=== PATIENT | female | born 1955 | race Caucasian/White ===

== ENCOUNTER → 2016-08-28 | Outpatient (CLI) | payer OTHER ==
[~2016-08-28] MED LIST: ASPIRIN 81M81 MG/TA2 PO; CEFTIN500 MG PO; DOXYCYCLINE 10100 MG PO; HCTZ 25MG TAB25 MG PO; MICARDIS20 MG PO; MICARDIS40 MG PO; PRIL40 PO; ULTRAM 50MG TAB50 MG PO; ZOCOR 40MG40 MG PO
== END ==
LOC: MC.RAD 14:27
DX: Z12.31 Encounter for screening mammogram for malignant neoplasm of breast (principal)

== ENCOUNTER → 2017-09-16 | Outpatient (CLI) | payer OTHER | LOC: MC.RAD 10:30 | DX: Z12.31 Encounter for screening mammogram for malignant neoplasm of breast (principal) ==

== ENCOUNTER 2018-09-09 20:33 | Emergency (ER) | payer OTHER ==
[~2018-09-09] VITALS: Ht 160 cm; Wt 138.6 kg
[2018-09-09 20:38] VITALS: BP 130/70; PULSE 108; TEMP 98.8
[2018-09-09] MEDS ORDERED: ZOCOR 20MG20 MG PO (20:41)
[2018-09-09] MEDS ORDERED: VISINE 15 ML15 ML OP (20:50)
[2018-09-09] MEDS ORDERED: AMOXICILLIN 8751 TAB PO (21:07)
== END 2018-09-09 21:25 | disposition home or self-care (01) ==
LOC: COL.ER 20:33
DX: J01.90 Acute sinusitis, unspecified (principal); I10 Essential (primary) hypertension; E78.5 Hyperlipidemia, unspecified

== ENCOUNTER 2018-10-22 18:37 | Emergency (ER) | payer OTHER ==
[~2018-10-22] VITALS: Ht 160 cm; Wt 139.1 kg
[~2018-10-22 18:37] MED LIST changes: +AMOXICILLIN 8751 TAB PO; +VISINE 15 ML15 ML OP; +ZOCOR 20MG20 MG PO
[2018-10-22 18:42] VITALS: BP 137/92; TEMP 99.1
[2018-10-22 19:34] LABS: BASO % 0.2 % (0.0-2.0); EOS # 0.1 (0.0-0.7); EOS % 0.9 % (0-4.0); GRAN # 12.1 (1.4-6.5); GRAN % 79.8 % (42.2-75.2); HEMATOCRIT 42.7 % (37.0-47.0); HEMOGLOBIN 13.9 g/dl (12.5-16.0); LYMPH # 1.9 (1.2-3.4); LYMPH % 12.7 % (20.0-51.0); MEAN CELL VOLUME 92 fl (80.0-100.0); MEAN CORPUSCULAR HEMOGLOBIN 30 pg (27.0-31.0); MEAN CORPUSCULAR HGB CONC 33 g/dl (33.0-37.0); MEAN PLATELET VOLUME 8.9 fl (7.4-10.4); MONO # 0.9 (0.1-0.6); MONO % 5.9 % (1.7-9.3); PLATELET COUNT 303 K/mm3 (130-400); RED BLOOD COUNT 4.63 M/mm3 (4.10-5.30); REDCELL DISTRIBUTION WIDTH-CV 12.7 % (11.5-14.5)
[2018-10-22 19:54] LABS: ALBUMIN 3.9 gm/dL (3.5-5.0); BILIRUBIN,TOTAL 0.6 mg/dL (0.0-1.0); C-REACTIVE PROTEIN 7.5 mg/dL (0.0-0.9); CALCIUM 9.3 mg/dL (8.4-10.2); CREATININE, serum 0.79 (0.52-1.25); TOTAL PROTEIN 7.8 gm/dL (6.4-8.2)
[2018-10-22 20:11] LABS: COLLECTION METHOD CLEAN CATCH
[2018-10-22 20:17] LABS: PH 6 (5-8); URINE APPEARANCE Hazy; URINE BACTERIA None Seen /hpf; URINE BILIRUBIN Negative (NEGATIVE); URINE BLOOD Negative (NEGATIVE); URINE COLOR Yellow; URINE GLUCOSE Negative (NEGATIVE); URINE KETONE Negative (NEGATIVE); URINE LEUKOCYTE ESTERASE Negative (NEGATIVE); URINE NITRATE Negative (NEGATIVE); URINE PROTEIN(semi-quant) Negative (NEGATIVE); URINE UROBILINOGEN Negative (NEGATIVE)
[2018-10-22] MEDS ORDERED: NORCO 325 MG-51 TAB PO (20:56)
[2018-10-22] MEDS ORDERED: MEDROL 4MG DOSPA4 MG PO (20:56)
[2018-10-22 21:20] VITALS: PULSE 94
== END 2018-10-22 21:21 | disposition home or self-care (01) ==
LOC: COL.ER 18:37
PROVIDERS: Emergency Medicine
DX: M79.18 Myalgia, other site (principal); Z79.82 Long term (current) use of aspirin
CPT/HCPCS: J1885; J7512

== ENCOUNTER 2018-11-03 05:32 | Inpatient (IN) | payer OTHER ==
[~2018-11-03] VITALS: Ht 160 cm; Wt 138.7 kg
[~2018-11-03 05:32] MED LIST changes: +MEDROL 4MG DOSPA4 MG PO; +NORCO 325 MG-51 TAB PO
[2018-11-03 06:21] LABS: BASO % 0.2 % (0.0-2.0); EOS # 0.3 (0.0-0.7); EOS % 2.1 % (0-4.0); GRAN # 9.5 (1.4-6.5); GRAN % 72.2 % (42.2-75.2); HEMATOCRIT 42.3 % (37.0-47.0); LYMPH # 2.4 (1.2-3.4); LYMPH % 18.2 % (20.0-51.0); MEAN CELL VOLUME 92 fl (80.0-100.0); MEAN CORPUSCULAR HEMOGLOBIN 30 pg (27.0-31.0); MEAN CORPUSCULAR HGB CONC 33 g/dl (33.0-37.0); MONO # 0.9 (0.1-0.6); MONO % 6.8 % (1.7-9.3); PLATELET COUNT 290 K/mm3 (130-400); RED BLOOD COUNT 4.61 M/mm3 (4.10-5.30); REDCELL DISTRIBUTION WIDTH-CV 12.6 % (11.5-14.5)
[2018-11-03 06:28] LABS: COLLECTION METHOD CLEAN CATCH
[2018-11-03 06:37] LABS: MUCOUS Present /lpf; PH 6 (5-8); URINE APPEARANCE Hazy; URINE BACTERIA None Seen /hpf; URINE BILIRUBIN Negative (NEGATIVE); URINE BLOOD Negative (NEGATIVE); URINE COLOR Yellow; URINE GLUCOSE Negative (NEGATIVE); URINE KETONE Negative (NEGATIVE); URINE LEUKOCYTE ESTERASE Trace (NEGATIVE); URINE NITRATE Negative (NEGATIVE); URINE PROTEIN(semi-quant) Negative (NEGATIVE); URINE RBC 0-2 /hpf; URINE UROBILINOGEN Negative (NEGATIVE)
[2018-11-03 07:04] LABS: ALBUMIN 3.6 gm/dL (3.5-5.0); BILIRUBIN,TOTAL 0.6 mg/dL (0.0-1.0); C-REACTIVE PROTEIN 5.2 mg/dL (0.0-0.9); CALCIUM 9.2 mg/dL (8.4-10.2); CREATININE, serum 0.65 (0.52-1.25); POTASSIUM 3.8 mmol/L (3.4-5.0); TOTAL PROTEIN 6.9 gm/dL (6.4-8.2)
[2018-11-03] MEDS ORDERED: OMNICEF 300MG300 MG PO (07:36)
--- NOTE | 2018-11-03 11:00 | NUR ---
Pt arrived to floor at this time via w/c with ER staff, able to get self into bed with no issues, c/o pain to RUQ at 4/10 at this time, orienting to room, will continue to monitor.
[2018-11-03 11:18] VITALS: BP 121/73; PULSE 73; TEMP 98.2
[2018-11-03 11:22] VITALS: BP 121/73; PULSE 80; TEMP 98.2
[2018-11-03 11:46] VITALS: BP 121/73; PULSE 73; TEMP 98.2
[2018-11-03 14:34] LABS: CHOLESTEROL RISK RATIO 4.7
[2018-11-03 16:27] VITALS: BP 112/67; PULSE 82; TEMP 98.5
--- NOTE | 2018-11-03 17:56 | NUR ---
Pt doing well, pain is down to 2/10 in ABD. Tolerating PO CL diet well. Denies needs, IVF to R A/C. Will give bedside shift report to nightshift nurse who will resume care.
--- NOTE | 2018-11-03 19:45 | NUR ---
Shift assessment complete. PT resting in bed, awake, a&o, cooperative c cares. Pt denies pain or other c/o at this time. IV patent. Pt denies needs. Call light in reach, will monitor.
[2018-11-03 20:19] VITALS: BP 106/55; PULSE 79; TEMP 98.6
[2018-11-04 04:00] VITALS: BP 116/84; PULSE 78; TEMP 98.2
[2018-11-04 10:32] LABS: BASO % 0.2 % (0.0-2.0); EOS # 0.2 (0.0-0.7); EOS % 1.4 % (0-4.0); GRAN # 9.2 (1.4-6.5); GRAN % 76.6 % (42.2-75.2); HEMATOCRIT 40.3 % (37.0-47.0); LYMPH # 1.9 (1.2-3.4); MEAN CELL VOLUME 94 fl (80.0-100.0); MEAN CORPUSCULAR HEMOGLOBIN 30 pg (27.0-31.0); MEAN CORPUSCULAR HGB CONC 32 g/dl (33.0-37.0); MEAN PLATELET VOLUME 8.5 fl (7.4-10.4); MONO # 0.6 (0.1-0.6); MONO % 4.8 % (1.7-9.3); PLATELET COUNT 243 K/mm3 (130-400); RED BLOOD COUNT 4.27 M/mm3 (4.10-5.30); REDCELL DISTRIBUTION WIDTH-CV 12.8 % (11.5-14.5)
--- NOTE | 2018-11-04 10:35 | NUR ---
Initial visit; Patient thanked General Claims Agent for looking in on her and offering spiritual care.
[2018-11-04 10:47] LABS: CALCIUM 8.7 mg/dL (8.4-10.2); CREATININE, serum 0.64 (0.52-1.25); POTASSIUM 3.6 mmol/L (3.4-5.0)
[2018-11-04 12:20] VITALS: BP 111/78; PULSE 87; TEMP 97.9
[2018-11-04 12:21] VITALS: BP 103/69; PULSE 93; TEMP 97.8
--- NOTE | 2018-11-04 13:11 | NUR ---
SW met with patient and about discharge planning. Patient lives independently at home with her and works at [employer]. Patient's PCP is Yana Burdick and she obtains prescriptions from [facility]. Patient does not use any DME or home health services. Patient does not have a DPOA and she is not interested in obtaining one. Patient plans to return home when she is discharged. SW does not anticipate any discharge needs.
[2018-11-04] MEDS ORDERED: MACROBID 1100 MG/CAP PO (13:54)
--- NOTE | 2018-11-04 14:41 | NUR ---
Discharge instructions provided to patient. Education material provided. Patient verbalized understanding. IV removed, catheter intact.
== END 2018-11-04 15:00 | disposition home or self-care (01) | DRG 439 ==
LOC: COL.ER 05:32 → MEDICAL 08:28
PROVIDERS: Emergency Medicine; Physician Assistant; ADMIT Hospitalist
DX: K85.90 Acute pancreatitis without necrosis or infection, unspecified (principal); Z68.43 Body mass index [BMI] 50.0-59.9, adult; N39.0 Urinary tract infection, site not specified; I10 Essential (primary) hypertension; E78.5 Hyperlipidemia, unspecified; E66.01 Morbid (severe) obesity due to excess calories
CPT/HCPCS: 99222-AI; 99239; A4216; C9113; J0696; J1650; J2270; J2405; J3010; J7030; Q9967

== ENCOUNTER 2021-08-16 05:57 | Emergency (ER) | payer OTHER ==
[~2021-08-16] VITALS: Ht 160 cm; Wt 135.5 kg
[~2021-08-16 05:57] MED LIST changes: +MACROBID 1100 MG/CAP PO; +OMNICEF 300MG300 MG PO
[2021-08-16 06:04] VITALS: TEMP 98.3
[2021-08-16 06:32] LABS: BASO % 0.3 % (0.0-2.0); EOS # 0.2 K/mm3 (0.0-0.7); EOS % 1.7 % (0.0-4.0); GRAN # 6.6 K/mm3 (1.4-6.5); GRAN % 66.1 % (42.2-75.2); HEMOGLOBIN 14.7 g/dl (12.5-16.0); LYMPH # 2.5 K/mm3 (1.2-3.4); LYMPH % 25.2 % (20.0-51.0); MEAN CELL VOLUME 89 fl (80.0-100.0); MEAN CORPUSCULAR HEMOGLOBIN 31 pg (27-31); MEAN CORPUSCULAR HGB CONC 34 g/dl (33.0-37.0); MEAN PLATELET VOLUME 9.1 fl (7.4-10.4); MONO # 0.6 K/mm3 (0.1-0.6); MONO % 6.4 % (1.7-9.3); PLATELET COUNT 298 K/mm3 (130-400); RED BLOOD COUNT 4.81 M/mm3 (4.10-5.30); REDCELL DISTRIBUTION WIDTH-CV 12.6 % (11.5-14.5)
[2021-08-16 06:47] LABS: ALBUMIN 3.4 gm/dL (3.4-4.8); BILIRUBIN,TOTAL 0.6 mg/dL (0.2-1.2); CALCIUM 9.3 mg/dL (8.4-10.2); CREATININE, serum 0.79 mg/dL (0.57-1.11); POTASSIUM 3.8 mmol/L (3.5-4.5); TOTAL PROTEIN 7.3 gm/dL (6.2-8.1)
[2021-08-16 06:53] LABS: TROPONIN-I 0.019 ng/mL (0.00-0.033)
[2021-08-16 09:31] VITALS: BP 113/84; PULSE 81
== END 2021-08-16 09:37 | disposition home or self-care (01) ==
LOC: COL.ER 05:57
PROVIDERS: Student in an Organized Health Care Education/Training Program
DX: R07.89 Other chest pain (principal); I95.9 Hypotension, unspecified; Z79.899 Other long term (current) drug therapy

== ENCOUNTER → 2021-09-25 | Outpatient (CLI) | payer OTHER | LOC: MC.RAD 07:11 | DX: Z12.31 Encounter for screening mammogram for malignant neoplasm of breast (principal) ==